=== PATIENT | male | born 1975 | race Caucasian/White ===

== ENCOUNTER 2025-03-15 23:30 | Emergency (ER) | payer OTHER, SELFPAY ==
[2025-03-15 23:40] VITALS: BP 128/87; PULSE 110; RESP 24; TEMP 37.1; O2SAT 96
--- NOTE | 2025-03-15 23:46 | ED.GENADULT ---
HPI - General Adult General Time Seen by Provider: 23:47 Date Seen: 03/15/25 Chief complaint: Insect Bite Stated complaint: Stung by wasp right leg, reaction Time Seen by Provider: 03/15/25 23:45 Source: patient, RN notes reviewed and old records reviewed Mode of arrival: ambulatory Limitations: no limitations History of Present Illness HPI narrative: 49-year-old male who comes in today with insect stings. Patient reports he was stung by multiple black wasps yesterday on the right ankle. Today increased pain and swelling. He reports he wash this with hydrogen peroxide, alcohol, and salt solution. He continues to have pain and so he came into the emergency department. He denies fever or chills, does note some lightheadedness and nausea as well as shortness of breath. No abdominal pain. Related Data Home Medications ?Medication ?Instructions ?Recorded ?Confirmed No Known Home Medications 03/15/25 03/15/25 Allergies Allergy/AdvReac Type Severity Reaction Status Date / Time No Known Drug Allergies Allergy Verified 03/15/25 23:40 Exam Narrative: Exam Narrative: General: Well-developed and well-nourished, no acute distress Head: Atraumatic and normocephalic Eyes: Pupils are equal reactive, extraocular motions intact, conjunctiva clear ENT: External nose and ears are normal, posterior pharynx without erythema or exudate Neck: No midline cervical tenderness, full spontaneous range of motion the neck, trachea midline, no adenopathy Heart: Tachycardic regular Lungs: Clear to auscultation bilaterally without wheezes or crackles Abdomen: Soft, nontender, nondistended with active bowel sounds Musculoskeletal: No tenderness, deformity, or edema Neurologic: Awake, alert, and oriented x3, no gross focal neurologic deficits, cranial nerves intact as tested Psych: Mood and affect are appropriate Skin: erythema swelling of the right medially knee anterior medial ankle with several blisters measuring a 10-14 mm. Two of these were unroofed with serous fluid obtained, this was sent for culture. Const: Vital Signs, click to edit/add: Vital Signs - 24 hr 03/15/25 23:40 Temperature 98.8 F Pulse Rate [Pulse Oximeter] 110 H Respiratory Rate 24 Blood Pressure [Ri ght Upper Arm] 128/87 Pulse Oximetry 96 Oxygen Delivery Me thod Room Air Course Course ED Course: Reviewed most recent emergency department note from December 2022 when patient presented to the emergency department but was not seen. Patient presents today with 6 days of the right ankle which occurred yesterday but increased pain and swelling today. On exam, there is erythema and swelling of the right lower leg with several areas of blistering and some unroofed blisters as well. Copious with serous drainage but no purulence, no odor. Patient is tachycardic on initial evaluation, lungs are clear, no respiratory distress. Symptoms are most consistent with strong local reaction to insect envenomation but with blistering and some of the unroofed blisters I am concerned about potential for infection. Patient given Benadryl, prednisone, and Augmentin in the emergency department and will be discharged with prednisone and Augmentin as well as wound care referral. Wound was dressed in the department and we discussed wound care including washing daily with soap and water, elevation, and cool packs. Patient reports some nausea, lightheadedness and some shortness of breath but no fever, lungs are clear with no wheezing, no stridor, no lip or tongue swelling. This may represent mild systemic reaction to in envenomation but would not administer epinephrine at this time. Vital Signs Vital signs: Initial Vital Signs Temperature 98.8 F 03/15/25 23:40 Temperature Source Temporal Artery Scan 03/15/25 23:40 Pulse Rate 110 H 03/15/25 23:40 Pulse Rhythm Regular 03/15/25 23:40 Pulse Strength 3+ Normal 03/15/25 23:40 Respiratory Rate 24 03/15/25 23:40 Blood Pressure 128/87 03/15/25 23:40 Blood Pressure Mean 100 03/15/25 23:40 Blood Pressure Position Sitting 03/15/25 23:40 Pulse Oximetry 96 03/15/25 23:40 Oxygen Delivery Method Room Air 03/15/25 23:40 Vital Signs Temperature 98.8 F 03/15/25 23:40 Pulse Rate 110 H 03/15/25 23:40 Respiratory Rate 24 03/15/25 23:40 Blood Pressure 128/87 03/15/25 23:40 Pulse Oximetry 96 03/15/25 23:40 Oxygen Delivery Method Room Air 03/15/25 23:40 Temperature 98.8 F 03/15/25 23:40 Pulse Rate 110 H 03/15/25 23:40 Respiratory Rate 24 03/15/25 23:40 Blood Pressure 128/87 03/15/25 23:40 Pulse Oximetry 96 03/15/25 23:40 Oxygen Delivery Method Room Air 03/15/25 23:40 Discharge Plan Discharge Clinical Impression: Allergic reaction to insect sting Patient Disposition: Home, Self-Care Condition: Stable Instructions: Insect Bite or Sting (ED) Additional Instructions: Wash area gently with soap and water once a day. Blot dry gently. Do not use rubbing alcohol or hydrogen peroxide to clean. Leave the blisters intact. Take prednisone and Augmentin as prescribed. Take Benadryl 25-50 mg every 6 hours as well as Zyrtec 10 mg daily for 1 week. Follow up in wound care clinic, call tomorrow for an appointment. Activity Level: Activity as Tolerated Discharge Diet: Regular Prescriptions: No Action No Known Home Medications Follow Up/Referrals[facility] Group, [facility] Care] - 2 Days Stand Alone Forms: MyHealth Info Instructions
--- OUTSIDE RECORDS SUMMARY | 2025-03-16 00:27 | XMS_ITS | Clinical Summary ---
Author Organization [facility] Address [address] [place] [address] Care Team Providers Care Wire Twister Name Role Phone None Primary Care Provider Unavailabl e Allergies No known active allergies Medications MULTIVITAMIN WITH IRON-MINERAL ORAL LIQUID take 1 tablet by mouth once daily 0 06/14/2009 Active piroxicam (FELDENE) 20 mg capsule Take 1 capsule by mouth once daily with a meal. 20 capsule 0 12/25/2010 Active sertraline (ZOLOFT) 100 mg tablet Take 3 tablets by mouth 3 times daily. 0 06/24/2016 Active gabapentin (NEURONTIN) 300 mg capsule Take 1 capsule by mouth 3 times daily. 0 06/24/2016 Active traZODone (DESYREL) 50 mg tablet Take 1 tablet by mouth at bedtime if needed for Sleep. 0 06/24/2016 Active ketorolac 0.5 % ophthalmic (ACULAR) solutionIndicat ions:Corneal abrasion, left, initial encounter Place 1 Drop into left eye 4 times daily. For pain as needed 1 Bottle 06/24/2016 Active trimethoprim-po lymyxin b (POLYTRIM) ophthalmic solutionIndicat ions:Corneal abrasion, left, initial encounter Place 2 Drops into left eye 3 times daily for 7 days for bacteria 5.6 mL 06/24/2016 Active Family History Medical History Relation Name Comments Psychiatric illness Father depressi on and anxiety Relation Name Status Comments Father Social History Tobacco Use Types Packs/Day Years Used Date Smoking Tobacco: Some Days Alcohol Use Standard Drinks/Week Comments Yes 0 (1 standard drink = 0.6 oz pur e alcohol) 2 beers aday Sex and Gender Information Value Date Recorded Sex Assigned at Not on file 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 Gender Identity Not on file Sexual Orientation Not on file Obstetrics History Last Filed Vital Signs Vital Sign Reading Time Taken Comments Blood Pressure 162/98 06/24/2016 4:23 PM CDT Pulse 94 06/24/2016 4:23 PM CDT Temperature 37.4 C (99.3 F) 06/24/2016 4:23 PM CDT Respiratory Rate 20 06/24/2016 4:23 PM CDT Oxygen Saturation 97% 06/24/2016 4:23 PM CDT Inhaled Oxygen Concentration - - Weight 78.9 kg (174 lb) 06/24/2016 4:23 PM CDT p t reported Height 165.1 cm (5' 5) 06/24/2016 4:23 PM CDT p t reported Body Mass Index 28.96 06/24/2016 4:23 PM CDT Plan of Treatment Health Maintenance Due Date Last Done Comments Tetanus booster 1984 Depression screening for age 12+ 1985 HIV for age 15-65 1988 Hepatitis C screening for age 18-79 12/28/1991 Hepatitis B series for 19+ ( 1 of 3 - 19+ 3-dose series) 1992 BMI (ht and wt on same day) for age 18+ 06/24/2017 1 Colonoscopy through age 75 2018 Lipids for age 45-75 2018 Pneumococcal series for age 50+ (1 of 1 - PCV) 024 Zoster (shingles) series for age 50+ (1 of 2) 12/28/19 24 COVID-19 vaccine series ( - 2023- season) 4 Influenza Vaccine (#1) 2025 Insurance * Guarantor: Kennedy Juarez Account Type Relation to Patient Date of Phone Billing Address Personal/Family Self 1975 [id number] [address] [place] [address] [place] [id number] Care Teams Wire Twister Relationship Specialty Start Date End Date None . PCP - General 04/06/07
--- OUTSIDE RECORDS SUMMARY | 2025-03-16 00:27 | XMS_ITS | Clinical Summary ---
Author Organization [facility] Address [address] [place] [id number] Care Team Providers Care Dry Kiln Operator Helper Name Role Phone Needs Pcp, Assignment Primary Care Provider [phone] Source Comments You are receiving this document as you are listed as the primary care provider,follow-up provider, or the patient has been referred to you for consultation.This is in compliance with the Medicare and[facility] Incentive [facility],which states Providers who transition their patient to another setting of careor provider of care or refers their patient to another provider of care shouldprovide summary care record for each transition of care or referral. 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 Pulse 107 11/08/2019 10:33 AM PROFESSOR OF ARCHITECTURE Temperature 36.8 C (98.2 F) 11/08/2019 10:33 AM PROFESSOR OF ARCHITECTURE Respiratory Rate 24 11/08/2019 10:33 AM PROFESSOR OF ARCHITECTURE Oxygen Saturation 98% 11/08/2019 10:33 AM PROFESSOR OF ARCHITECTURE Inhaled Oxygen Concentration - - Weight - - Height - - Body Mass Index - - Plan of Treatment Health Maintenance Due Date Last Done Comments Colon Cancer Screening Plan Due 1973 Hep C Screening (Preventive Services) 1973 PSA Screening Discussion 1973 HIV Screening (Preventive Services) 1989 Adult Preventive Visit 12/28/1991 DTaP/Tdap/Td Vaccine (1 - Tdap) 1992 HepB Vaccine (1) 1992 Pneumococcal Vaccine 50+ Yrs (1 of 2 - PCV) 1992 Cholesterol 2008 Zoster/Shingles Vaccine (1 of 2) 12/28/2023 COVID-19 Vaccine (1 - 2023-2 5 season) 2024 Influenza Vaccine (Season Ended) 2025 HepA Vaccine Aged Out No longer eligi ble based on patient's age to complete this topic Hib Vaccine Aged Out No longer eligi ble based on patient's age to complete this topic IPV (Polio) Vaccine Aged Out No longe r eligible based on patient's age to complete this topic MCV4 Vaccine Aged Out No longer eligi ble based on patient's age to complete this topic Meningococcal B Vaccine Aged Out No l onger eligible based on patient's age to complete this topic Insurance F[employer] INSURED Care Teams Dry Kiln Operator Helper Relationship Specialty Start Date End Date Needs Pcp, [place], [place] [id number] PCP - General 11/15/16
--- OUTSIDE RECORDS SUMMARY | 2025-03-16 00:27 | XMS_ITS | Clinical Summary ---
Author Organization [facility] Address [address] [place] [id number] Care Team Providers Care Train Reservation Clerk Name Role Phone No Ref-Primary, Physician Primary Care Provider Allergies Active Allergy Reactions Criticality Noted Date Comments Contrast Dye 11/08/2019 Vomiting/diarrhea Iohexol 11/08/2019 Nausea/vomiting Medications Sertraline HCl (ZOLOFT PO) Take by mouth daily Active GABAPENTIN PO Active ciprofloxacin (CIPRO) 500 MG tablet Take 1 tablet (500 mg) by mouth 2 times daily 20 tablet 0 10/19/2014 Active Social History Tobacco Use Types Packs/Day Years Used Date Smoking Tobacco: Never Assessed Adolescent Education Answer Date Record ed Getting School Help Needed Not on file 06/22 Sex and Gender Information Value Date Recorded Sex Assigned at Not on file 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 Gender Identity Not on file Sexual Orientation Not on file Last Filed Vital Signs Vital Sign Reading Time Taken Comments Blood Pressure 178/101 01/03/2023 2:42 PM CDT Pulse 93 01/03/2023 2:41 PM CDT Temperature 36.9 C (98.5 F) 01/03/2023 2:41 PM CDT Respiratory Rate 18 01/03/2023 2:41 PM CDT Oxygen Saturation 97% 01/03/2023 2:41 PM CDT Inhaled Oxygen Concentration - - Weight 74.8 kg (165 lb) 01/03/2023 2:41 PM CDT Height - - Body Mass Index - - Plan of Treatment Not on file Care Teams Train Reservation Clerk Relationship Specialty Start Date End Date No Ref-Primary, Physician PCP - General 10/19/14
== END 2025-03-16 00:57 | disposition home or self-care (01) ==
PROVIDERS: Emergency Provider Family Medicine
DX: T63.461A Toxic effect of venom of wasps, accidental (unintentional), initial encounter (principal); R22.41 Localized swelling, mass and lump, right lower limb; R23.8 Other skin changes
CPT/HCPCS: 87070; 87205; 99283; A9270; J7512